=== PATIENT | male | born 1960 | race African-American/Black ===

== ENCOUNTER 2020-01-15 10:25 | Emergency (ER) | payer MEDICARE ==
[~2020-01-15] VITALS: Ht 188 cm; Wt 65.0 kg
[~2020-01-15 10:25] MED LIST: AMIO200T4 PO; BUME2TAB3 PO; FLUT16SP NS; HYDR25TA PO; LABE100T5 PO; PARO25TA13 PO
[2020-01-15] MEDS ORDERED: LIDOCAINE 1%/EPI 1:100,000 20 ML VIAL. SQ ONE (11:15)
[2020-01-15] MEDS ORDERED: LIDOCAINE 1% Multi-Dose 20 ML VIAL. ONE (11:39)
[2020-01-15] MEDS ORDERED: ceFAZolin SODIUM IV Push 1 GM VIAL. IVP ONE (12:00)
[2020-01-15] MEDS ORDERED: DIPH,PERTUSS(ACELL),TET VAC/PF 0.5 ML SYRINGE. VAX IM ONE (12:45)
[2020-01-15] MEDS ORDERED: CEPH-264 PO (13:33)
--- NOTE | 2020-01-15 13:34 | PHYS DOC ---
Past Medical History Past Medical History: Other Additional Past Medical Histor: aoritc dissection, PTSD, anxiety Smoking Status: Current Every Day Smoker Alcohol Use: Heavy General Adult EDM: Chief Complaint: LACERATION/AVULSION HPI: HPI: Patient is a 59 year old AA male who presents to emergency department via EMS with complaints of a laceration to his lateral right lower leg after he fell out of his wheelchair this morning. He does not know why he fell. He denies any loss of consciousness or hitting his head. He denies any neck pain, back pain, nausea, vomiting, fever, cough, shortness of breath, dizziness, chest pain, numbness, tingling, or weakness. Patient reports he is not sure when his last tetanus shot was. He currently denies any complaints. Review of Systems: Review of Systems: Constitutional: Denies fever or chills. [] Eyes: Denies change in visual acuity. [] HENT: Denies nasal congestion or sore throat. [] Respiratory: Denies cough or shortness of breath. [] Cardiovascular: Denies chest pain or edema. [] GI: Denies abdominal pain, nausea, vomiting, or diarrhea. [] Musculoskeletal: Denies back pain or joint pain. [] Integument: Denies rash; see HPI. [] Neurologic: Denies headache, focal weakness or sensory changes. [] Psychiatric: Denies depression or anxiety. [] Heart Score: Risk Factors: Risk Factors: DM, Current or recent (<one month) smoker, HTN, HLP, family history of CAD, obesity. Risk Scores: Score 0 - 3: 2.5% MACE over next 6 weeks - Discharge Home Score 4 - 6: 20.3% MACE over next 6 weeks - Admit for Clinical Observation Score 7 - 10: 72.7% MACE over next 6 weeks - Early Invasive Strategies Current Medications: Current Medications Medications (Trade) Dose Ordered Sig/Vikash Start Time Stop Time Status Last Admin Dose Admin Cefazolin Sodium (Ancef) 1 gm 1X ONCE 01/15/20 12:00 01/15/20 12:01 DC 01/15/20 12:35 1 GM Diphtheria/ Tetanus/Acell Pertussis (ADACEL TDap SYRINGE) 0.5 ml ONCE ONCE 01/15/20 12:45 01/15/20 12:46 DC Lidocaine HCl (Lidocaine 1% 20ml Vial) 20 ml STK-MED ONCE 01/15/20 11:39 01/15/20 11:40 DC Lidocaine/ Epinephrine (LIDOCAINE 1%-EPI 1:100,000 Multi-Dose) 20 ml 1X ONCE 01/15/20 11:15 01/15/20 11:16 DC 01/15/20 11:34 20 ML Allergies: Allergies: Allergies Coded Allergies Type Severity Reaction Last Updated Verified No Known Drug Allergies 01/03/20 No Physical Exam: PE: Constitutional: Well developed, well nourished, no acute distress, non-toxic appearance. [] HENT: Normocephalic, atraumatic, bilateral external ears normal, nose normal. [] Eyes: PERRLA, EOMI, conjunctiva normal, no discharge. [] Neck: Normal range of motion, no stridor. [] Cardiovascular:Heart rate regular rhythm Lungs & Thorax: Respirations even and unlabored, no retractions, no respiratory distress Skin: Warm, dry, no erythema, no rash, 20 cm crescent-shaped laceration noted to the lateral right calf, no active bleeding,, no visible foreign body [] Extremities: Right lower leg, no bony tenderness to palpation, cap refill less than 2 seconds, pedal and posterior tibial pulses 2+, no cyanosis, ROM intact, no edema. [] Neurologic: Alert and oriented X 3, no focal deficits noted. [] Psychologic: Affect normal, judgement normal, mood normal. [] EKG: EKG: [] Radiology/Procedures: Radiology/Procedures: [Laceration Repair by me: Anesthesia: 1% lidocaine with and without epinephrine locally Location: Right lateral lower leg Tendon/Joint/Nerves: No injury Foreign body: None detected after copious irrigation with normal saline, scrubbing with chlorhexidine brush, and exploration Technique: 34 Simple Interrupted Sutures with 3-0 Ethilon and 3-0 Prolene Complexity: 2 subcutaneous sutures were completed: the vertical suture was done with 4 throws of 3-0 Vicryl, the horizontal suture was done with 6 throws of 3-0 Vicryl Post Closure Length: 20 cm Patient's bleeding was easily controlled in the department and there is no indication of anemia. No evidence of compartment syndrome, neurologic injury, vascular injury, open joint, tendon laceration, or foreign body. Patient is appropriate for outpatient follow up. 48 hour wound check. Scar minimization instructions given. ] Course & Med Decision Making: Course & Med Decision Making Pertinent Labs and Imaging studies reviewed. (See chart for details) [] Mell Disclaimer: Mell Disclaimer: This electronic medical record was generated, in whole or in part, using a voice recognition dictation system. Departure Departure Impression: Primary Impression: Laceration of right lower leg with complication Qualified Codes: S81.811A - Laceration without foreign body, right lower leg, initial encounter Disposition: HOME, SELF-CARE Condition: STABLE Referrals: UNKNOWN PCP NAME (PCP) Patient Instructions: Laceration Care, Adult, [id number] Additional Instructions: Fill the prescription and take as directed. Keep the area clean and dry. You may take Tylenol or ibuprofen as needed for pain. Keep the dressing that was placed today on for 24 hours then change the dressing twice a day and apply antibiotic ointment to the area. Follow-up with your primary care doctor, or return to the emergency room in 10-14 days to have the sutures removed, sooner if you develop signs of infection including: redness, warmth, drainage, or a fever. Scripts Cephalexin (KEFLEX) 500 Mg Capsule 500 MG PO TID for 7 Days, #21 CAP 0 Refills Prov: JASWANT BOOKER HIV COUNSELOR 01/15/20 Justicifation of Admission Dx: Justifications for Admission: Justification of Admission Dx: N/A Respiratory Failure: Mechanical Ventilation Aspiration Pneumonia: Chronic Lung Disease Acute Renal Failure: RF Can't Be Managed Outpt Chronic Renal Failure: Hemodynamic Instability Sepsis: Infection Acute COPD Exacerbation: Acute COPD Exacerbation Altered Mental Status: Altered Mental Status JASWANT BOOKER HIV COUNSELOR Jan 15, 2020 13:34
[2020-01-15 15:00] VITALS: BP 139/90
== END 2020-01-15 14:48 | disposition home or self-care (01) ==
LOC: ER 10:25
DX: S81.811A Laceration without foreign body, right lower leg, initial encounter (principal); F17.200 Nicotine dependence, unspecified, uncomplicated; F10.20 Alcohol dependence, uncomplicated; Y90.9 Presence of alcohol in blood, level not specified; W05.0XXA Fall from non-moving wheelchair, initial encounter; Y93.89 Activity, other specified; Y92.89 Other specified places as the place of occurrence of the external cause; Y99.8 Other external cause status
CPT/HCPCS: 12005; 90471; 90715; 96374; 99285; J0690; J3490